=== PATIENT | male | born 1970 | race Caucasian/White ===

== ENCOUNTER 2021-09-11 06:47 | Emergency (ER) | payer OTHER ==
[~2021-09-11] VITALS: Ht 180.3 cm; Wt 111.0 kg
[~2021-09-11 06:47] MED LIST: ASPI81TA39 PO; GLIP10TA9 PO; METF-445 PO; SIMV5TAB59 PO; SITA50 PO
[2021-09-11 07:04] VITALS: BP 159/87
[2021-09-11 10:36] LABS: GLUCOMETER DEV NAME(LOC) ERT.5; GLUCOSE,POINT OF CARE 207 MG/DL (70-110)
== END 2021-09-11 09:39 | disposition home or self-care (01) ==
LOC: EMS 06:48
DX: I83.891 Varicose veins of right lower extremity with other complications (principal); E11.9 Type 2 diabetes mellitus without complications; E78.5 Hyperlipidemia, unspecified; E78.00 Pure hypercholesterolemia, unspecified; F17.210 Nicotine dependence, cigarettes, uncomplicated; I10 Essential (primary) hypertension
CPT/HCPCS: 82962; 99282